=== PATIENT | female | born 1955 | race Caucasian/White ===

== ENCOUNTER 2020-05-12 08:19 | Outpatient (CLI) | payer MEDICARE, SELFPAY ==
--- NOTE | ~2020-05-12 | PE_ITS ---
EXAMINATION: PET skull to mid thigh DATE: 05/12/2020 11:33 INDICATION: Lung mass TECHNIQUE: Blood glucose level was 116 mg/dL. 8.760 mCi of 18-fluorodeoxyglucose (18-FDG) was adminis tered i.v. Low dose computed tomography (CT) images were acquired from the base of the brain to the p roximal thighs for attenuation correction and anatomic localization. Positron emission tomography (PE T) images were acquired in the same distribution beginning 58 minutes after injection. The dose-lengt h product (DLP) was 317.10 mGy-cm. COMPARISON: None FINDINGS: Head/neck: There is FDG uptake in the oral cavity, the anterior paraspinal muscles, the vocal cords, there are no pathologically enlarged lymph nodes. And the right masseter without suspicious CT correl ate, likely physiologic. Chest: There is a 5.0 x 2.6 cm mass of the right upper lobe which abuts and appears to cross the talat r fissure in the middle lobe. There is peripheral FDG uptake in the mass with an SUV max of 5.6. The central portion of the mass is photopenic. There is a 4.0 x 2.4 cm mass of the inferomedial aspect of the right upper lobe abutting the anterior heart border with an SUV max of 5.0. There is no pleural effusion or pneumothorax. A precarinal lymph node measures 11 mm in short axis but does not demonstra te abnormal FDG uptake. Calcified coronary artery atherosclerosis is noted. Abdomen/pelvis/proximal thighs: Physiologic FDG activity is present in the bowel and urinary tract. T he liver, spleen, pancreas, gallbladder, and adrenal glands are normal. The kidneys are unremarkable. No pathologically enlarged abdominal or pelvic lymph nodes are identified. There is no free intraper itoneal gas or evidence of bowel obstruction. There is calcified atherosclerosis of the aorta and man y of the other arteries. Surgical changes of the cecum likely reflect prior appendectomy. Musculoskeletal: No abnormal FDG uptake is identified. There are changes of anterior fusion in the ce rvical spine from C4 through C7. There is moderate thoracic and lumbar spondylosis. IMPRESSION: 1. Right upper lobe lung masses with abnormal FDG uptake as described above. Although findings could represent primary bronchogenic carcinoma, multifocal pneumonia is a consideration. Recommend CT-guide d biopsy and antibiotic therapy if not previously performed. If pneumonia, this would be expected to improve in the interval prior to biopsy. Reviewed, dictated and finalized at location A. IMPRESSION: 1. Right upper lobe lung masses with abnormal FDG uptake as described above. Al though findings could represent primary bronchogenic carcinoma, multifocal pneu monia is a consideration. Recommend CT-guided biopsy and antibiotic therapy if not previously performed. If pneumonia, this would be expected to improve in th e interval prior to biopsy.
[2020-05-12 08:51] LABS: Glucose Point of Care 116 (65-105)
== END 2020-05-12 08:20 | disposition home or self-care (01) ==
LOC: ANHIMG 08:29
PROVIDERS: PCP Internal Medicine; Visit Provider Internal Medicine
DX: R91.8 Other nonspecific abnormal finding of lung field (principal)
CPT/HCPCS: 78815; A9552

== ENCOUNTER 2021-04-13 09:16 | Outpatient (CLI) | payer MEDICARE, SELFPAY ==
--- NOTE | ~2021-04-13 | PE_ITS ---
EXAMINATION: PET skull to mid thigh DATE: 04/13/2021 11:00 INDICATION: Lung mass. TECHNIQUE: Blood glucose level was 110 mg/dL. 9.1 mCi of 18-fluorodeoxyglucose (18-FDG) was administe red i.v. Low dose computed tomography (CT) images were acquired from the base of the brain to the pro ximal thighs for attenuation correction and anatomic localization. Automated exposure control was emp loyed. Dose-length product (DLP) was 467 mGy-cm. Positron emission tomography (PET) images were acqui red in the same distribution. COMPARISON: PET CT 05/12/2020 FINDINGS: Head/neck: There is increased activity in the oropharynx, nasopharynx, and floor of mouth without abn ormal CT correlate, likely physiologic. There are no pathologically enlarged lymph nodes. There are c hanges of anterior fusion procedure in cervical spine. Chest: There is mild scarring at the lung apices. There is mild atelectasis and scarring without incr eased activity in right upper lobe in the area of the previously seen pneumonia. There is a new clust er of nodules in superior segment left lower lobe measuring up to 8 mm without increased activity. No pleural effusion. The heart size is normal. There are coronary artery calcifications. No pericardial effusion. There are normal-sized left axillary lymph nodes with increased activity, likely reactive. Abdomen/pelvis/proximal thighs: The liver, gallbladder, spleen, pancreas, adrenal glands, and kidneys are normal. There are no dilated loops of bowel. There are no pathologically enlarged lymph nodes. T here is no free intraperitoneal fluid. There is no osseous malignancy. IMPRESSION: 1. New cluster of nodules in superior segment left lower lobe measuring up to 8 mm without increased activity, likely infection. Reviewed, dictated and finalized at location B.
[2021-04-13 09:41] LABS: Glucose Point of Care 110 mg/dl (65-105)
== END 2021-04-13 09:17 | disposition home or self-care (01) ==
PROVIDERS: PCP Internal Medicine; Visit Provider Internal Medicine
DX: R91.8 Other nonspecific abnormal finding of lung field (principal)
CPT/HCPCS: 78815; 82948; A9552